=== PATIENT | male | born 1975 | race Caucasian/White ===

== ENCOUNTER → 2017-06-08 | Outpatient (CLI) | payer OTHER ==
[~2017-06-08] MED LIST: ACCUNEB SO1.25 MG/1 INH; ALEVE220 MG PO; AMOX TR-K CLV1 EAC4 PO; ZYRTEC10 M5 PO
== END ==
LOC: ULTRA 09:07
DX: R22.32 Localized swelling, mass and lump, left upper limb (principal)

== ENCOUNTER → 2017-06-21 | Outpatient (CLI) | payer OTHER | LOC: MRI 08:35 | DX: R22.31 Localized swelling, mass and lump, right upper limb (principal) ==

== ENCOUNTER → 2017-07-01 | Outpatient (CLI) | payer OTHER | LOC: MRI 09:26 | DX: M87.9 Osteonecrosis, unspecified (principal); M79.9 Soft tissue disorder, unspecified ==

== ENCOUNTER → 2017-07-15 | Outpatient (CLI) | payer OTHER | LOC: MRI 10:46 | DX: M51.27 Other intervertebral disc displacement, lumbosacral region (principal) ==

== ENCOUNTER → 2018-03-08 | Outpatient (CLI) | payer OTHER ==
[~2018-03-08] VITALS: Ht 175.3 cm; Wt 90.7 kg
--- NOTE | ~2018-03-08 | HPC ---
[facility] [address] [place] [address] PAIN MANAGEMENT CONSULTATION Name: MAGALYS BATEMAN III Room #: REG [facility].#: [id number] Admission: 03/08/18 Attend Phys: Jeremy Diaz DO Discharge: Date of : 73 Report #: [id number] THIS REPORT FOR: //name// CC: Jeremy Guerra DATE OF SERVICE: 03/08/2018 CHIEF COMPLAINT: Axial back pain. HISTORY OF PRESENT ILLNESS: As you know, the patient is a 43-year-old male who reports acute onset of back pain that began in 07/14/2017. He denies any specific injury or trauma. The patient states initially he trialed bign-heh-tjhbcdk medications, rest and relaxation and this did not improve the patient's symptoms. He subsequently then began to discuss his case with his primary care physician who sent the patient for physical therapy. The patient indicates he has been in physical therapy for nearly 3 months, though this therapy was not concentrating on the patient's low back, he had other issues that he was actually undergoing physical therapy for as well. He states that despite the physical therapy, he does not feel his pain was improved with treatment. He tried idwx-fds-dvthhkf nonsteroidal anti-inflammatories with having GI upset issues and had to discontinue their use. He notes improvement in symptoms with those medications. Due to lack of improvement, the patient underwent an MRI of the lumbar spine, which shows minimal changes at the L5-S1 level. The patient was subsequently referred to our service as he was not improving with conservative treatment. The patient reports today's pain is periodic; describes the pain as cramping, aching, and sharp; places current pain score 4/10, daily average at 2-7/10, worst pain has been is 9/10. The patient states that any type of activity exacerbates symptoms. Improvement of pain is noted with pressure on his hips and soaking in a hot tub. He has been referred to our service by his primary care physician to discuss possible causes of his ongoing pain and potential treatments. PAST MEDICAL HISTORY: 1. Seasonal allergies. 2. Asthma. PAST SURGICAL HISTORY: 1. 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 2. Carpal tunnel release, 07/2017, left-sided. SOCIAL HISTORY: The patient denies tobacco, IV or illicit drug use. Admits to approximately 3 alcoholic beverages per week. 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 He is working, not receiving workmen's compensation nor is he trying to obtain disability benefits. He is not in litigation in regards to his pain. REVIEW OF SYSTEMS: Positive for fatigue and weakness, frequent and recurrent headaches, hearing loss or tinnitus, earaches with drainage, frequent urination, nocturia, lightheadedness and dizziness, axial back pain. All other review of systems negative per 12-point review of systems other than those listed in history of present illness. Pain impact score 40/70 indicating dqprcnpc-ds-zuqelf interference of daily activities secondary to pain. ALLERGIES: No reported drug allergies. CURRENT MEDICATIONS: Naproxen 220 mg 3 times a day, Zyrtec 10 mg once a day, albuterol 2 puffs q. 4 hours p.r.n. IMAGING: MRI of lumbar spine obtained on 07/15/2017 shows L1-L2 unremarkable, L2-L3 unremarkable, L3-L4 unremarkable, L4-L5 unremarkable. L5-S1 shows mild disk desiccation, small subligamentous central disk protrusion measuring 1.5 cm craniocaudal, 5 mm AP. Central canal is not narrowed. No evidence of neural foraminal stenosis. PHYSICAL EXAMINATION: VITAL SIGNS: Blood pressure 130/92, pulse 93, respiratory rate 16 and unlabored. The patient is 97% on room air. Height 5 feet 9 inches tall, weight 200 pounds, BMI calculated at 29.5. GENERAL: Well-developed, well-nourished, well-hydrated, 43-year-old male. He appears stated age. He is in no acute distress, awake, alert and oriented x 3, current pain score 4/10. HEENT: Normocephalic, atraumatic. Pupils equal, round, reactive to light. Extraocular muscles are intact. Sclerae nonicteric without injection. NEUROLOGIC: Cranial nerves 2 through 12 grossly intact. Speech fluent. LUNGS: Clear, no wheeze, rhonchi or rales. CARDIOVASCULAR: Regular. No appreciable gallop, no rub. ABDOMEN: Soft, nontender, nondistended, normal and active bowel sounds. EXTREMITIES: Show no clubbing, no cyanosis, no edema. MUSCULOSKELETAL: The patient has some palpatory tenderness over the paraspinal musculature of lower lumbar spine, no spinous process tenderness. Lower extremity strength is equal and symmetrical 5/5. He is intact to light touch from L1 through S2 dermatomes. Deep tendon reflexes are symmetrical at patella and Achilles. Ankle clonus negative. Babinski is negative. Gait is normal, stance slightly forward flexed lumbar spine, loss of lordotic curvature is minor. Seated straight leg raising negative. Supine straight leg raising negative. Modified Gaenslen's positive for axial low back pain. Lumbar [facility] [address] [place] [address] PAIN MANAGEMENT CONSULTATION Name: MAGALYS BATEMAN III Room #: REG [facility] William#: [id number] Admission: 03/08/18 Attend Phys: Jeremy Diaz DO Discharge: Date of : 73 Report #: [id number] provocation testing extension, rotation cause intensification of axial back pain directly over what appears to be L5-S1 level. No radiation of symptoms beyond the axial back. ASSESSMENT: 1. Axial back pain. 2. Facet-mediated pain of the lumbar spine. 3. Myofascial pain. PLAN: 1. Based on today's physical exam and history the patient has provided, the description the patient uses in regards to pain as well as the discrete location of symptoms located in the lower portion of back directly over what appears to be the L5-S1 level, likely source of the patient's pain is facet-mediated pain. The other pain generator in the area is the myofascial symptoms related to the underlying facet-generated pain. I am pleased to advise the patient after reviewing his MRI that he has no significant pathology in the lumbar region. He has a mild disk desiccation and disk bulge at the L5-S1 level, though there is no central canal nor neural foraminal stenotic areas requiring any surgical option. There is only mild arthritic changes at the L5-S1 level noted on imaging, but is not discussed in the impression on the MRI. We discussed the following treatment options for facet-mediated pain today. We discussed physical therapy, stretching exercises, core strengthening. I understand the patient was in physical therapy, but he was also being treated for left arm symptoms related to not only his carpal tunnel syndrome, but the tumor excision that occurred recently in July. More concerted and directed treatment with a physical therapy group might be warranted in this patient's case. I believe concentrated treatment on the lumbar spine with a more aggressive physical therapy treatment option may be quite beneficial. We discussed medication management trialing GI-protective nonsteroidal anti-inflammatories. We discussed intraarticular facet injections at the L5-S1 level bilaterally to improve symptoms and we discussed acupuncture, chiropractic manipulation and myofascial release techniques. After reviewing the risks and benefits of all the proposed treatment options, the patient chose to begin with GI protective nonsteroidal anti-inflammatories and to progress towards intraarticular facet injection of the L5-S1 facet joints bilaterally. The patient was advised third republican payer requires preauthorization before the patient could undergo bilateral L5-S1 intraarticular facet injections to address axial back pain issues. Authorization could take anywhere from 4-7 working days. We will begin the authorization process immediately. Once we have achieved this authorization, we will contact the patient to return to undergo the injection. 2. We have provided the patient with samples of Zipsor 25 mg dose, diclofenac [address] [address] PAIN MANAGEMENT CONSULTATION Name: MAGALYS BATEMAN III Room #: REG [facility]#: [id number] Admission: 03/08/18 Attend Phys: Jeremy Diaz DO Discharge: Date of : 73 Report #: [id number] in a gel form capsule. This has GI protective capabilities not noted in nonsteroidal anti-inflammatories gave-exv-aarurdj. We need an effective agent in this patient's case and I do believe this would be beneficial. I have given him samples of Zipsor 25 mg dose to take 2-3 times a day for pain control. If this is a successful trial, we will be willing to provide a prescription of the medication to the patient. Given the fact that he has failed owyv-clg-pahvbbk nonsteroidal anti-inflammatories due to GI difficulties including dyspepsia, we would recommend a more GI friendly form of medication, diclofenac in liquid form has met this criteria. Other options for treatment could be meloxicam, though the efficacy of this medication is limited. We also discussed Celebrex, but again the efficacy of this medication is somewhat limited though it could be considered. 3. We will see the patient back in followup visit once we have achieved authorization to undergo bilateral L5-S1 intraarticular facet injections to address facet-mediated pain. I am unable to elicit any findings on physical exam that would correlate to the disk changes at the L5-S1 level. There is no central canal or neural foraminal stenosis and thus no radicular component. Once we have this authorization, we will contact the patient and have him return. 4. We will keep you apprised of the patient's response to treatment for his axial back pain issues. We appreciate the opportunity to see the patient in consultation and we will be returning his care to your capable hands once we have addressed his axial back pain. <ELECTRONICALLY SIGNED> By: Jeremy Diaz DO 03/09/18 0822 [id number] [id number] Jeremy Diaz DO /nt
[2018-03-08 13:36] VITALS: BP 130/92
== END ==
LOC: PAIN 06:57
DX: M54.5 Low back pain (principal); M79.18 Myalgia, other site; Z72.89 Other problems related to lifestyle

== ENCOUNTER → 2018-03-16 | Outpatient (CLI) | payer OTHER ==
[~2018-03-16] VITALS: Ht 175.3 cm; Wt 92.7 kg
--- NOTE | ~2018-03-16 | HPC ---
[facility] [place] [address] PAIN MANAGEMENT CONSULTATION Name: FRANSICOMAGALYS BOOKER COELLO Room #: REG [facility].#: [id number] Admission: 03/16/18 Attend Phys: Jeremy Diaz DO Discharge: Date of : 73 Report #: [id number] THIS REPORT FOR: //name// CC: Jeremy Guerra DATE OF SERVICE: 03/16/2018 CHIEF COMPLAINT: Axial back pain. HISTORY OF PRESENT ILLNESS: As you know, the patient is a 43-year-old male with acute onset of low back pain, began on 07/14/2017. Denies any specific injury or trauma. He states he initially trialed vsqs-oey-bdxzwgi medications, rest, relaxation; this did not improve his symptoms. He subsequently underwent MRI of the lumbar spine, which shows only minor disk desiccation findings at the L5-S1 level, a very small central disk protrusion that does not cause any central canal or neural foraminal stenosis noted at this level. There was noted arthritic change at the L5-S1 level that is classified as mild to possibly eiee-vr-visgkiym. The fact the patient is experiencing axial back pain, the patient was sent for facet-mediated pain injections in the form of L5-S1 intra-articular facet injections. The patient returns today to undergo the procedure. He is reporting pain today at level of 4/10 located only in the axial back. He states the pain is sharp, tightness and aching in sensation; exacerbated with standing for any length of time, sitting for any length and walking; typical findings for facet-mediated pain. He states medication, pressure, repositioning and heat tend to improve pain. He returns today to undergo bilateral L5-S1 intra-articular facet injections. ALLERGIES: No known drug allergies. CURRENT MEDICATIONS: Naproxen, Zyrtec, albuterol. SOCIAL HISTORY: The patient denies tobacco, IV or illicit drug use. Admits to approximately 3 alcoholic beverages per week. 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 He is unaccompanied today. IMAGING: No new imaging available. PHYSICAL EXAMINATION: VITAL SIGNS: Blood pressure 120/97, pulse 79, respiratory rate 14 and unlabored. The patient is 97% on room air. Height 5 feet 9 inches tall, weight 204.4 pounds, BMI calculated 30.2. GENERAL: Well-developed, well-nourished, well-hydrated 43-year-old male appearing stated age, placing current pain score at around 4/10. HEENT: Normocephalic, atraumatic. Pupils equal, round, reactive to light. [address] [address] PAIN MANAGEMENT CONSULTATION Name: MAGALYS BATEMAN [facility] Room #: REG [facility]..#: [id number] Admission: 03/16/18 Attend Phys: Jeremy Diaz DO Discharge: Date of : 73 Report #: [id number] EXTREMITIES: Show no clubbing, no cyanosis, no edema. MUSCULOSKELETAL: Lower extremity strength is symmetrical 5/5. He is intact to light touch from L1 through S2 dermatomes. Seated straight leg raising negative. Supine straight leg raising negative. Teresa's test negative. Modified Gaenslen's positive for axial low back pain. ASSESSMENT: 1. Axial back pain. 2. Facet-mediated pain in the lumbar spine. 3. Myofascial pain. PLAN: 1. The patient returns today in followup visit to undergo bilateral L5-S1 intra-articular facet injections under fluoroscopic guidance to address facet-mediated pain of the lumbar region. The patient has been advised the risks and benefits of this procedure. These risks include but are not necessarily limited to bleeding, bruising, infection, worsening of pain, no relief of pain and also risk of temporary or permanent muscle weakness, temporary or permanent nerve damage, possible paralysis and . The patient states he understood and wished to proceed. 2. No medication changes made at today's visit. The patient to continue current medical therapy as previously prescribed. 3. The patient to return to our clinic on an as needed basis for possible next in the series of intra-articular facet injections PROCEDURE NOTE: DESCRIPTION OF PROCEDURE: Bilateral L5-S1 intra-articular facet injections under fluoroscopic guidance. This is the first procedure of the first series that the patient is undergoing. After obtaining written consent, the patient was taken back to the fluoroscopy suite and placed in a prone position with a pillow under the abdomen to decrease the lumbar lordosis and to facilitate needle entry into the facet joints. The skin overlying the lumbosacral area was prepped and draped in an aseptic fashion. AP and lateral fluoroscopic imaging was obtained. Optimal position of the fluoroscope occurred when the joint line was first visualized. The facet joints were identified radiographically directed adjacent to the superior articular process of the caudad vertebrae. The skin overlying the target sites of injection was anesthetized using 3 mL of 1% lidocaine. A 22-gauge 3-1/2-inch spinal needle with a bent tip was advanced towards the L5-S1 facet joints on the right and left side under fluoroscopic guidance. The firm posterior capsule had its characteristic feel and the needle was advanced a few additional millimeters beyond the joint capsule into the joint space, but not [address] [address] PAIN MANAGEMENT CONSULTATION Name: MAGALYS BATEMAN III Room #: [facility]#: [id number] Admission: 03/16/18 Attend Phys: Jeremy Diaz DO Discharge: Date of : 73 Report #: [id number] into the articular cartilage. After the joint space was entered and aspiration was negative for heme or CSF, 0.2 mL of Omnipaque was injected demonstrating a characteristic facet arthrogram. After negative aspiration for heme or CSF, 1.5 mL of a solution containing 1 mL 40 mg per mL, 40 mg total triamcinolone and 0.5 mL of bupivacaine 0.5% was slowly injected at each of two facets. The needle(s) was then removed. There were no apparent complications. The patient tolerated the procedure well and was carefully escorted to the recovery room in stable condition. The VAS was 4/10 before the procedure and 2/10 ten minutes after the procedure. After meeting discharge criteria, the patient was discharged home. <ELECTRONICALLY SIGNED> By: Jeremy Diaz DO 03/18/18 0734 [id number] Jeremy Diaz DO /nt
[2018-03-16 09:06] VITALS: BP 128/97
== END | disposition home or self-care (01) ==
LOC: PAIN 06:58
DX: M47.816 Spondylosis without myelopathy or radiculopathy, lumbar region (principal); M79.18 Myalgia, other site; Z79.899 Other long term (current) drug therapy

== ENCOUNTER → 2019-04-06 | Outpatient (CLI) | payer OTHER | LOC: CAT 08:30 | DX: Z13.6 Encounter for screening for cardiovascular disorders (principal); E78.00 Pure hypercholesterolemia, unspecified; I25.10 Atherosclerotic heart disease of native coronary artery without angina pectoris ==

== ENCOUNTER → 2020-02-22 | Outpatient (CLI) | payer BC, OTHER | LOC: LAB 13:30 | PROVIDERS: ATTEND Nurse Practitioner | DX: Z20.828 Contact with and (suspected) exposure to other viral communicable diseases (principal) ==

== ENCOUNTER → 2020-06-04 | Outpatient (CLI) | payer OTHER | LOC: LAB 14:24 | PROVIDERS: ATTEND Nurse Practitioner | DX: Z20.828 Contact with and (suspected) exposure to other viral communicable diseases (principal) ==

== ENCOUNTER → 2020-06-10 | Outpatient (CLI) | payer OTHER | LOC: LAB 14:22 | PROVIDERS: ATTEND Nurse Practitioner | DX: Z20.822 Contact with and (suspected) exposure to COVID-19 (principal) ==

== ENCOUNTER → 2021-06-17 | Outpatient (CLI) | payer OTHER | LOC: CAT 16:13 | PROVIDERS: ATTEND Nurse Practitioner | DX: Z13.6 Encounter for screening for cardiovascular disorders (principal); E78.00 Pure hypercholesterolemia, unspecified; I25.10 Atherosclerotic heart disease of native coronary artery without angina pectoris ==